=== PATIENT | male | born 1975 | race Caucasian/White ===

== ENCOUNTER 2020-11-01 10:00 | Emergency (ER) | payer OTHER, SELFPAY ==
[2020-11-01] VITALS (7 sets, daily range): BP systolic 105–134; BP diastolic 72–84; PULSE 68–97; RESP 15–19; TEMP 36.6–36.9; O2SAT 96–99; BMI 21.5
--- NOTE | 2020-11-01 10:06 | XR_ITS ---
PROCEDURE: XR HIP RT 2-3V W/PELVIS CLINICAL INDICATION: trauma Pain COMPARISON: No exams were available for comparison FINDINGS: No fracture or dislocation. Suspected small bone island noted in the left femoral neck. Generalized vascular calcification. IMPRESSION: No acute findings. Dictated by: Alexandr Singleton MD 11/01/2020 11:30 Alexandr Singleton MD in [place] 11/01/2020 11:30
--- NOTE | 2020-11-01 10:06 | CT_ITS ---
PROCEDURE: CT HEAD/BRAIN WO CON CLINICAL INDICATION: trauma Head injury with headache/pain, contusion, abrasion or hematoma COMPARISON: No exams were available for comparison TECHNIQUE: Axial images obtained. All CT scans at the facility use one or more dose reduction, viz: automated exposure control, ma/kV adjustment per patient size (including targeted exams where dose is matched to indication, i.e. head), or iterative reconstruction technique. FINDINGS: No midline shift, mass effect, intracranial hemorrhage, hydrocephalus, or extra-axial fluid collection is evident. The calvarium has an unremarkable appearance. No mastoid effusion. Moderate mucosal thickening noted within the ethmoid sinuses. IMPRESSION: No acute intracranial finding Dictated by: Alexandr Singleton MD 11/01/2020 11:33 Alexandr Singleton MD in [place] 11/01/2020 11:33
--- NOTE | 2020-11-01 10:06 | XR_ITS ---
PROCEDURE: XR CHEST PORTABLE CLINICAL HISTORY: cough COMPARISON: No exams were available for comparison FINDINGS: The cardiomediastinal silhouette and pulmonary vascularity are within normal limits. COPD changes. Nodularity noted in the left upper lobe with multiple small nodules present as seen on the CT of the cervical spine. Largest nodular opacity is approximately 9 mm. No acute bony abnormalities. IMPRESSION: No acute finding. COPD with left apical nodules. Nonemergent chest CT may provide further evaluation Dictated by: Alexandr Singleton MD 11/01/2020 11:39 Alexandr Singleton MD in [place] 11/01/2020 11:39
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
[2020-11-01 10:22] LABS: POC Glucose,Bedside 103 (70-110)
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
--- NOTE | 2020-11-01 11:01 | PC.NURSE ---
pt going to CT
--- NOTE | 2020-11-01 11:26 | PC.NURSE ---
pt returning from rad.
== END 2020-11-01 13:04 | disposition home or self-care (01) ==
PROVIDERS: Emergency Provider Emergency Medicine
DX: S73.101A Unspecified sprain of right hip, initial encounter (principal); S16.1XXA Strain of muscle, fascia and tendon at neck level, initial encounter; V87.8XXA Person injured in other specified noncollision transport accidents involving motor vehicle (traffic), initial encounter; Y92.69 Other specified industrial and construction area as the place of occurrence of the external cause; Y99.0 Civilian activity done for income or pay; F17.210 Nicotine dependence, cigarettes, uncomplicated
CPT/HCPCS: 70450; 71045; 72125; 73502; 82962; 99281

== ENCOUNTER 2021-10-11 20:53 | Emergency (ER) | payer SELFPAY ==
[2021-10-11 20:55] VITALS: BP 99/72; PULSE 78; RESP 16; TEMP 36.6; O2SAT 99; BMI 19.3
--- NOTE | 2021-10-11 21:28 | XR_ITS ---
PROCEDURE INFORMATION: Exam: XR Chest Exam date and time: 10/11/2021 9:31 PM Age: 46 years old Clinical indication: Cough TECHNIQUE: Imaging protocol: Radiologic exam of the chest. Views: 2 views. COMPARISON: CR XR CHEST PORTABLE 11/01/2020 11:02 AM FINDINGS: Lungs: Unremarkable. No consolidation. Pleural spaces: Unremarkable. No pleural effusion. No pneumothorax. Heart/Mediastinum: Unremarkable. No cardiomegaly. Bones/joints: Unremarkable. IMPRESSION: No acute findings.
[2021-10-11 21:45] LABS: Coronavirus 19, PCR Not Detected (NotDetected); Influenza A, PCR Not Detected (NotDetected); Influenza B, PCR Not Detected (NotDetected)
[2021-10-11 22:08] LABS: Basophils # 0.1 K/mm3 (0-0.2); Basophils % 2.4 % (0.1-2.0); Eosinophils # 0.3 K/mm3 (0.0-0.4); Eosinophils % 5.4 % (0.1-12.0); Hematocrit 46.1 % (42.0-52.0); Hemoglobin 14.1 g/dL (14.1-18.0); Lymphocytes # 2.6 K/mm3 (0.7-4.5); Lymphocytes % 43.2 % (10-50); Mean Corpuscular HGB Conc 30.5 g/dL (31.8-35.4); Mean Corpuscular Hemoglobin 29.2 pg (27.0-31.2); Mean Corpuscular Volume 95.6 fl (80-94); Mean Platelet Volume 7.4 fl (7.4-10.4); Monocytes # 0.5 K/mm3 (0.1-1.0); Monocytes % 7.8 % (1.7-9.3); Neutrophils # 2.5 K/mm3 (1.8-7.8); Neutrophils % 41.2 % (37.0-80.0); Platelet Count 304 K/mm3 (142-424); Red Blood Count 4.83 M/mm3 (4.60-6.20); Red Cell Distribution Width 12.6 % (11.5-17.5)
[2021-10-11 22:24] LABS: Alanine Aminotransferase 18 U/L (12-78); Albumin Level 4.3 g/dl (3.5-5.0); Albumin/Globulin Ratio 1.5 (1.1-1.8); Alkaline Phosphatase 80 U/L (38-126); Aspartate Amino Transferase 37 U/L (17-59); Blood Urea Nitrogen 7 mg/dl (9-20); Calcium 9.4 mg/dl (8.4-10.2); Carbon Dioxide 28 mmol/L (22.0-30.0); Chloride 103 mmol/L (98-107); Creatinine Clearance Estimated 114 mL/min (50-200); Estimated Glomerular Filt Rate 121 ml/min (>60); GFR (African American) 147 ML/MIN (>60); Globulin 2.9 g/dL (1.3-3.2); Glucose 103 mg/dl (74-100); Sodium 136 mmol/L (136-145); Total Protein,Serum 7.2 g/dl (6.3-8.2)
[2021-10-11 22:29] LABS: C-Reactive Protein 3.4 mg/L (0-4)
[2021-10-11 22:33] LABS: Bilirubin,Total < 0.1 mg/dl (0.2-1.3)
[2021-10-11 22:45] LABS: Procalcitonin 0.049 ng/mL (0.0-2.0)
[2021-10-11 22:53] LABS: Erythrocyte Sedimentation Rate 8 mm/hr (0-15)
--- NOTE | 2021-10-11 23:26 | HMH.EDURI ---
ED Disposition Clinical Impression: Bronchitis Disposition: Home, Self-Care Condition on Discharge: Good Instructions: DI for Acute Bronchitis Additional Instructions: use meds and see pcp for follow up Prescriptions: Benzonatate [Benzonatate 100mg cap] 100 mg PO TID #21 cap Transmission Status: Pending to [facility] levoFLOXacin [Levaquin 500mg tab] 500 mg PO DAILY #7 tab Transmission Status: Pending to [facility] predniSONE [Prednisone 20mg Tab] 20 mg PO BID #10 tab Transmission Status: Pending to [facility] Referrals: Provider,Referral, [Primary Care Provider] - - Critical Care Critical Care Time: No Attestation: On 10/11/21, the high probability of a clinically significant, sudden or life threatening deterioration of the following system(s) required my full and direct attention, intervention and personal management. The time I documented below is in addition to time spent performing reported procedures but includes the following listed in this critical care notation. Medical Decision Making - Medical Records Medical records reviewed: Yes: I reviewed the patient's medical records. - Chadd Inquiry Pt receiving controlled substance: No Vital Signs: 10/11/21 20:55 Temperature 98 F Temperature Source Oral Pulse Rate [Left] 78 Respiratory Rate 16 Blood Pressure [Right Arm] 99/72 L Blood Pressure Mean [Right Arm] 81 02 Sat by Pulse Oximetry 99 Oxygen Delivery Method Room Air - Lab Data Lab results reviewed: Yes: I reviewed the patient's lab results. Lab Results 10/11/21 21:20: SARS-CoV-2 (PCR) Not detected, Influenza A Untype (PCR) Not detected, Influenza Type B (PCR) Not detected 10/11/21 22:00: WBC 6.0, RBC 4.83, Hgb 14.1, Hct 46.1, MCV 95.6 H, MCH 29.2, MCHC 30.5 L, RDW 12.6, Plt Count 304, MPV 7.4, Neut % (Auto) 41.2, Lymph % (Auto) 43.2, Crawford % (Auto) 7.8, Eos % (Auto) 5.4, Baso % (Auto) 2.4 H, Neut # (Auto) 2.5, Lymph # (Auto) 2.6, Crawford # (Auto) 0.5, Eos # (Auto) 0.3, Baso # (Auto) 0.1, ESR 8 10/11/21 22:00: Sodium 136, Potassium 4.0, Chloride 103, Carbon Dioxide 28, Anion Gap 9.0, BUN 7 L, Creatinine 0.70, Estimated Creat Clear 114, Estimated GFR 121, Est GFR ( Amer) 147, Glucose 103 H, Calcium 9.4, Total Bilirubin < 0.1 L, AST 37, ALT 18, Alkaline Phosphatase 80, C-Reactive Protein 3.4, Total Protein 7.2, Albumin 4.3, Globulin 2.9, Albumin/Globulin Ratio 1.5, Procalcitonin 0.049 Result diagrams: 10/11/21 22:00 10/11/21 22:00 Orders (Tests/Meds): ED MEDICATIONS Generic Name Dose Route Start Last Admin Trade Name Freq PRN Reason Stop Dose Admin Sodium Chloride 1,000 mls @ 999 mls/hr 10/11/21 22:15 10/11/21 22:08 Sod Chlor 0.9% 1000ml Bag IV 10/11/21 23:15 999 mls/hr .Q1H1M AIDA Administration Discontinued Medications Generic Name Dose Route Start Last Admin Trade Name Freq PRN Reason Stop Dose Admin Albuterol/Ipratropium 3 ml 10/11/21 23:31 Ipratropium/Albuterol 3 Ml Neb IH 10/11/21 23:32 ONCE ONE Ketorolac Tromethamine 30 mg 10/11/21 23:31 Ketorolac 30mg/Ml Vial IV 10/11/21 23:32 ONCE ONE Levofloxacin 500 mg 10/11/21 23:31 Levofloxacin 500mg Tab PO 10/11/21 23:32 ONCE ONE Methylprednisolone Sodium Succinate 125 mg 10/11/21 23:31 Methylprednisolone Sod Succ 125mg Vial IV 10/11/21 23:32 ONCE ONE - Radiology Data #1 Image(s): Chest Image Reviewed: Yes I have reviewed radiologist's interpretation Preliminary Findings: Normal/NAD Medical Decision Narrative: has acute bronchitis with hx of tob and prob copd will give treatment and ask pt to see pcp URI/Sore Throat HPI - General Chief Complaint: Upper Respiratory Infection Stated Complaint: COUGH,sob,knox,wEAKNESS Time Seen by Provider: 10/11/21 23:27 Mode of Arrival: Ambulatory Source of Information: Patient, Medical Record Limitations: No Limitations Description of Symptoms (Recalled from ER T
[2021-10-11 23:39] VITALS: BP 115/73; PULSE 71; RESP 16; TEMP 36.7; O2SAT 97
== END 2021-10-11 23:51 | disposition home or self-care (01) ==
PROVIDERS: Emergency Provider Emergency Medicine
DX: J40 Bronchitis, not specified as acute or chronic (principal); Z72.0 Tobacco use
CPT/HCPCS: 71046; 80053; 84145; 85025; 85651; 86140; 94640; 96365; 96375; 99284; C9803; U0003; U0005

== ENCOUNTER → 2022-05-15 09:06 | Outpatient (CLI) | payer OTHER, SELFPAY ==
--- NOTE | 2022-05-15 09:28 | XR_ITS ---
FINAL REPORT TECHNIQUE: Bone densitometry calculations of the lumbar spine and hips were obtained. CLINICAL HISTORY: . osteopenia FINDINGS: DEXA BONE DENSITY AXIAL SKELETON Using L1-4, the bone mineral density of the spine is 0.818 g/cm2, corresponding to T-score of -2.5. Using the right hip, the bone mineral density of the femoral neck is 0.673 g/cm2, corresponding to a T-score of -1.9. Using the left hip, the bone mineral density of the total hip is 0.675 g/cm2, corresponding to a T-score of -2.4. NOTE: T-score: Standard deviation compared with peak bone mass of young adult mean. *Following the recommendations of the International Society of Bone densitometry, classification of hip BMD is based on the lower of two T-scores; total hip or femoral neck. IMPRESSION: Diminished bone mineral density of the hips consistent with osteopenia. Diminished bone mineral density of the lumbar spine consistent with borderline osteoporosis. FRAX not reported because: May and under age 50. Some T-score for spinal Total or hip Total or femoral neck at or below -2.5 Reviewed, Interpreted and Dictated by Jordan Mathews MD Transcribed by Mayelin Hsieh Authenticated and [facility]
== END ==
PROVIDERS: PCP Nurse Practitioner Family; Visit Provider Nurse Practitioner Family
DX: M85.88 Other specified disorders of bone density and structure, other site (principal)
CPT/HCPCS: 77080

== ENCOUNTER → 2022-05-30 14:23 | Outpatient (CLI) | payer BC, SELFPAY ==
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
--- NOTE | 2022-05-30 14:26 | US_ITS ---
FINAL REPORT CLINICAL HISTORY: CLAUDICATION,REST PAIN,SMOKER,HLD FINDINGS: COMPLETE ANKLE/BRACHIAL INDICES BILATERAL Complete ankle brachial indices were obtained. The right ARIN is 1.1. The left ARIN is 1.1. IMPRESSION: ABIs are within normal limits bilaterally. Reviewed, Interpreted and Dictated by Negrito Gonzalez III, MD Transcribed by Galilea Goodwin Authenticated and [facility]
== END ==
LOC: RT 14:24
PROVIDERS: PCP Nurse Practitioner Family; Visit Provider Nurse Practitioner
DX: R06.00 Dyspnea, unspecified (principal); I70.213 Atherosclerosis of native arteries of extremities with intermittent claudication, bilateral legs; R20.9 Unspecified disturbances of skin sensation; F17.200 Nicotine dependence, unspecified, uncomplicated; R94.31 Abnormal electrocardiogram [ECG] [EKG]
CPT/HCPCS: 93306; 93923

== ENCOUNTER 2022-06-05 12:25 | Emergency (ER) | payer OTHER, BC, SELFPAY ==
[2022-06-05 13:00] VITALS: BP 117/76; PULSE 88; RESP 18; TEMP 36.7; O2SAT 99; BMI 23.2
--- NOTE | 2022-06-05 13:21 | XR_ITS ---
FINAL REPORT CLINICAL HISTORY: smashed index finger FINDINGS: AP, oblique and lateral views of the right 2nd digit were obtained. There is no prior exam for comparison. There is no acute fracture or dislocation. Joint spaces are preserved. There is a soft tissue defect a long the ulnar side of the distal 2nd finger. No foreign body is identified. IMPRESSION: 1. No acute osseous abnormality of the right 2nd digit. 2. Soft tissue defect along the ulnar side of the distal 2nd finger, no foreign body identified. Reviewed, Interpreted and Dictated by Rosie Sandoval MD Transcribed by Mayelin Hsieh Authenticated and [facility]
--- NOTE | 2022-06-05 13:36 | PC.NURSE ---
PT RETURNED FROM XR
--- NOTE | 2022-06-05 15:16 | HMH.EDGENADL ---
Discharge Plan Disposition Patient Disposition: Home, Self-Care Condition: Good Prescriptions Prescriptions: New hydrocodone-acetaminophen 5-325 mg tablet 1 tab PO Q6H PRN (Reason: pain) Qty: 10 0RF cephalexin 500 mg capsule 500 mg PO Q6H 7 Days Qty: 28 0RF Referrals Follow up/Referrals: Justen Muñoz APRN [Primary Care Provider] - See instructions Activity Restrictions/Add. Instructions Additional Instructions/Restrictions: Gently irrigate the wound daily with cool running water and apply antibiotic ointment and a nonadhesive dressing. Elevate as needed for swelling and discomfort. Avoid use of the right hand until approved by the hand specialist. Clinical Impressions Clinical Impression: Laceration of right index finger Stand Alone Forms Stand Alone Forms: Work/School Release Instructions Patient Instructions: DI for Laceration Repair Discharge ED Provider: Luis Mckeon General Adult HPI General Chief complaint: Wound/Laceration Stated complaint: [email or web address] smashed Rt pointer finger Time Seen by Provider: 06/05/22 15:10 Mode of Arrival: Ambulatory Limitations: No Limitations Description of Symptoms (Recalled from ER Triage Doc. by RN): PT WITH LACERATION AND SMASH INJURY TO RIGHT INDEX FINGER. 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 He denies additional injuries he denies focal neurological symptoms he describes his pain as moderate to severe and worse with movement Related Data Previous Rx's Medication Instructions Recorded cephalexin 500 mg capsule 500 mg PO Q6H 7 days #28 caps 06/05/22 hydrocodone 5 mg-acetaminophen 325 1 tab PO Q6H PRN pain #10 tabs 06/05/22 mg tablet Allergies Allergy/AdvReac Type Severity Reaction Status Date / Time No Known Allergies Allergy Verified 04/26/22 13:[address] [facility] Disclaimer: The information contained in this section may have been updated after the patient was seen, as this information can be updated by other users. Medical History MRSA infection (methicillin-resistant Staphylococcus aureus) Social History Smoking Status: Current every day smoker tobacco type: cigarettes alcohol intake: never substance use type: denies use current occupational status: employed Travel in the last 8 weeks: None ROS Obtained: Yes All systems reviewed & no additional complaints except as documented Physical Exam General General appearance: alert and in no apparent distress Head Head exam: atraumatic, normocephalic and normal inspection Eye Eye exam: Present normal appearance, PERRL and EOMI ENT ENT exam: Present normal exam, normal oropharynx, mucous membranes moist, TM's normal bilaterally and normal external ear exam Neck Neck exam: Present normal inspection, full ROM and trachea midline; Absent meningismus or lymphadenopathy Chest Chest inspection: Present normal inspection and symmetric chest wall rise; Absent tenderness Respiratory Respiratory exam: Present normal lung sounds bilaterally; Absent respiratory distress Cardiovascular Cardiovascular exam: Present regular rate and normal rhythm; Absent JVD Abdominal Exam Abdominal exam: Present soft and normal bowel sounds; Absent distention, tenderness or guarding Expanded Upper Extremity Exam Right: Hand exam: Present other (To the dorsal aspect of the right index finger is a 3 cm longitudinal laceration. There is underlying exposed tendon. Neurovascular function however is intact. Cap refill is less than 2 seconds to the affected digit. He has full range of motion.) Back Exam Back exam: Present normal inspection; Absent tenderness Neurological Exam N
--- NOTE | 2022-06-05 16:23 | PC.NURSE ---
spoke to [facility], dr anthony spoke with md and scheduling is to call pt with follow up
[2022-06-05 16:32] VITALS: BP 133/94; PULSE 82; RESP 18; TEMP 36.6; O2SAT 98
== END 2022-06-05 16:33 | disposition home or self-care (01) ==
PROVIDERS: Emergency Provider Emergency Medicine; PCP Nurse Practitioner Family
DX: S61.210A Laceration without foreign body of right index finger without damage to nail, initial encounter (principal); S67.190A Crushing injury of right index finger, initial encounter; W23.0XXA Caught, crushed, jammed, or pinched between moving objects, initial encounter; F17.210 Nicotine dependence, cigarettes, uncomplicated; Z86.14 Personal history of Methicillin resistant Staphylococcus aureus infection; Z23 Encounter for immunization
CPT/HCPCS: 12002; 73140; 90471; 90714; 99283; 99284

== ENCOUNTER 2022-08-30 10:00 | Outpatient (RCR) | payer OTHER, SELFPAY | END 2022-08-30 10:05 | disposition home or self-care (01) | LOC: OT 10:00 | PROVIDERS: Visit Provider Physician Assistant Medical | DX: M79.641 Pain in right hand (principal) | CPT/HCPCS: 97010; 97018; 97035; 97110; 97140; 97165 ==